=== PATIENT | female | born 1975 | race Caucasian/White ===

== ENCOUNTER 2018-12-14 12:32 | Outpatient (CLI) | payer OTHER ==
--- NOTE | 2018-12-14 15:14 | CT ---
ABDOMEN CT WITHOUT CONTRAST PELVIC CT WITHOUT CONTRAST: HISTORY: Endometriosis. Recent bladder infection. Lower pelvic pain with intercourse. COMPARISON: 12/08/2013. FINDINGS: CT ABDOMEN: Lung bases are clear. Heart size is within normal limits. No pericardial fluid. Descending thoracic aorta and abdominal a charles have a normal caliber. No periaortic fat stranding. Gallbladder is surgically absent. Limited evaluation of the solid organs by the lack of IV contrast. Grossly, no solid organ abnormali ty. No gastrohepatic, retrocrural, or periportal lymphadenopathy. There are a few scattered nonspecific lymph nodes in the central abdominal mesentery. No mesenteric mass, free air, or free fluid. Symmetric attenuation of psoas muscles. Bilaterally, no obstructive uropathy. Small punctate nonspecific calcifications in the left intrarenal collecting system. Limited evaluation of the alimentary canal by lack of oral contrast. Normal-caliber small bowel loop s. Ileocecal junction is normal. Normal-caliber appendix. Scattered fecal material in a nondistend ed, nondilated colon. Occasional diverticulum. No diverticulitis. CT PELVIS: No lymphadenopathy, free air, or free fluid. Hypodensity in the right hemipelvis likely representing an ovarian cyst measuring 1.9 x 1.8 cm. Uterus is surgically absent. Unremarkable urinary bladder. Laminectomy defect is identified. IMPRESSION: No acute abnormality of the abdomen or pelvis. POS: MACK
== END 2018-12-14 12:33 | disposition home or self-care (01) ==
LOC: CT 12:32
PROVIDERS: ATTEND Obstetrics & Gynecology
DX: R10.2 Pelvic and perineal pain (principal)
CPT/HCPCS: 74176

== ENCOUNTER 2019-05-22 13:49 | Emergency (ER) | payer OTHER ==
[2019-05-22] MEDS ORDERED: Acetaminophen 500 MG TAB ONE (15:33)
[2019-05-22] MEDS ORDERED: Metoclopramide HCl 10 MG/2 ML VIAL ONE (15:34)
[2019-05-22] MEDS ORDERED: diphenhydrAMINE 50 MG/ML VIAL ONE (15:34)
[2019-05-22] MEDS ORDERED: Ketorolac Tromethamine 30 MG/ML VIAL ONE (15:34)
--- NOTE | 2019-05-22 15:44 | CT ---
CT head noncontrast HISTORY: Headache. COMPARISON: 07/14/2014. FINDINGS: There is no evidence of acute intracranial hemorrhage or infarct. The ventricles appear nor mal in size, shape and position. There is no mass effect or shift of midline structures. IMPRESSION: No acute intracranial abnormalities are demonstrated.
[2019-05-22 16:32] LABS: #Eosinphils 0.2 thou/uL (0.0-0.7); #Lymphocytes 2.1 thou/uL (1.20-3.40); #Monocytes 0.5 thou/uL (0.11-0.59); #Neutrophils 4.4 thou/uL (1.40-6.50); %Basophils 0.6 % (0.0-1.0); %Eosinophils 3.1 % (0.0-10.0); %Lymphocytes 28.5 % (21.0-51.0); %Monocytes 7.2 % (0.0-10.0); %Neutrophils 60.5 % (42.0-75.0); Hemoglobin 13.4 g/dL (12.0-16.0); Mean Corpuscular HGB CONC 33.6 g/dL (32.0-36.0); Mean Corpuscular Volume 86.2 fL (78.0-98.0); Mean Platelet Volume 6.8 fL (7.4-10.4); Platelet Count 258 thou/uL (130-400); RBC Distribution Width 11.5 % (11.5-14.5); Red Blood Cell (RBC) Count 4.64 mill/uL (4.20-5.40); White Blood Cell (WBC) Count 7.2 thou/uL (4.8-10.8)
[2019-05-22 16:35] LABS: BHCG - Serum Negative (NEGATIVE); Pregs Control Background? CLEAR/WHITE (CLR/WHITE); Pregs Control Bar Appear? YES (CONTROL BAR)
[2019-05-22 16:41] LABS: ALT (SGPT) 19 U/L (8-55); AST (SGOT) 23 U/L (5-34); Albumin 4.5 g/dL (3.5-5.0); Alkaline Phosphatase 103 U/L (40-150); Anion Gap 14 mmol/L (10-20); BUN (Urea Nitrogen) 16 mg/dL (7.0-18.7); Bilirubin, Total 0.5 mg/dL (0.2-1.2); Calc. Creatinine Clearance 0 mL/min (70-130); Calcium 10.2 mg/dL (7.8-10.44); Carbon Dioxide 23 mmol/L (22-29); Chloride 105 mmol/L (98-107); Estimated GFR-MDRD 73; Globulin 2.9 g/dL (2.4-3.5); Glucose 83 mg/dL (70-105); Potassium 3.8 mmol/L (3.5-5.1); Protein, Total 7.4 g/dL (6.0-8.3); Sodium 138 mmol/L (136-145)
--- NOTE | 2019-05-22 16:46 | CT ---
CT cervical spine noncontrast HISTORY: Neck injury. Headache and neck pain. FINDINGS: Vertebral body heights are maintained. Reversal of the normal lordotic curvature. Cervicoth oracic junction is intact. No acute fracture or dislocation. Mild posterior disc bulge at the C6-7 level, effacing the ventral aspect of the thecal sac and spinal cord. Mild osteophytosis throughout the vertebral bodies and facets. IMPRESSION: No acute osseous abnormalities are demonstrated. Degenerative changes including posterior disc bulge at the C6-7 level.
== END 2019-05-22 17:14 | disposition home or self-care (01) ==
LOC: ERS 13:49
DX: S13.4XXA Sprain of ligaments of cervical spine, initial encounter (principal); F41.9 Anxiety disorder, unspecified; J45.909 Unspecified asthma, uncomplicated; Z79.899 Other long term (current) drug therapy; X58.XXXA Exposure to other specified factors, initial encounter
CPT/HCPCS: 36415; 70450; 72125; 80053; 84703; 85025; J1200; J1885; J2765

== ENCOUNTER 2019-11-13 17:58 | Emergency (ER) | payer OTHER, SELFPAY ==
[2019-11-13 19:55] LABS: #Eosinphils 0.1 thou/uL (0.0-0.7); #Lymphocytes 1.8 thou/uL (1.20-3.40); #Monocytes 0.3 thou/uL (0.11-0.59); #Neutrophils 4.5 thou/uL (1.40-6.50); %Basophils 0.7 % (0.0-1.0); %Eosinophils 1.7 % (0.0-10.0); %Lymphocytes 25.9 % (21.0-51.0); %Monocytes 4.9 % (0.0-10.0); %Neutrophils 66.7 % (42.0-75.0); Hemoglobin 14.5 g/dL (12.0-16.0); Mean Corpuscular HGB CONC 34.2 g/dL (32.0-36.0); Mean Corpuscular Volume 84.8 fL (78.0-98.0); Platelet Count 275 thou/uL (130-400); Red Blood Cell (RBC) Count 4.99 mill/uL (4.20-5.40); White Blood Cell (WBC) Count 6.8 thou/uL (4.8-10.8)
--- NOTE | 2019-11-13 20:11 | CT ---
CT head noncontrast HISTORY: Headache. COMPARISON: 05/22/2019. FINDINGS: There is no evidence of acute intracranial hemorrhage or infarct. The ventricles appear nor mal in size, shape and position. There is no mass effect or shift of midline structures. Visualized paranasal sinuses remain well-aerated. IMPRESSION: Normal exam.
[2019-11-13 20:18] LABS: ALT (SGPT) 21 U/L (8-55); AST (SGOT) 26 U/L (5-34); Albumin 4.7 g/dL (3.5-5.0); Alkaline Phosphatase 97 U/L (40-110); Anion Gap 14 mmol/L (10-20); BUN (Urea Nitrogen) 11 mg/dL (7.0-18.7); Bilirubin, Total 0.3 mg/dL (0.2-1.2); Calc. Creatinine Clearance 0 mL/min (70-130); Calcium 9.8 mg/dL (7.8-10.44); Carbon Dioxide 24 mmol/L (22-29); Chloride 106 mmol/L (98-107); Estimated GFR-MDRD 69; Globulin 3.1 g/dL (2.4-3.5); Glucose 86 mg/dL (70-105); Potassium 3.7 mmol/L (3.5-5.1); Protein, Total 7.8 g/dL (6.0-8.3); Sodium 140 mmol/L (136-145)
[2019-11-13 22:13] LABS: Bilirubin Negative (Negative); Blood, Urine Negative (Negative); Clarity Clear (Clear); Glucose, Urine (Dipstick) Normal (Negative); Leukocyte Negative Leu/uL (Negative); Nitrite Negative (Negative); Protein, Urine (Dipstick) Negative (Neg-Trace); Urobilinogen Normal mg/dL (Less than 2)
== END 2019-11-13 23:07 | disposition home or self-care (01) ==
LOC: ERS 17:58
DX: R51 Headache (principal); J45.909 Unspecified asthma, uncomplicated; F41.9 Anxiety disorder, unspecified; Z87.891 Personal history of nicotine dependence; Z79.899 Other long term (current) drug therapy
CPT/HCPCS: 36415; 70450; 80053; 81003; 85025; 87804

== ENCOUNTER 2019-12-17 12:40 | Outpatient (CLI) | payer OTHER ==
--- NOTE | 2019-12-17 13:28 | ULT ---
BILATERAL CAROTID DUPLEX ULTRASOUND: HISTORY: Dizziness TECHNIQUE: Grayscale, color-flow and spectral Doppler ultrasound imaging of the extracranial carotid artery syst ems was performed bilaterally. FINDINGS: Grayscale, color-flow, Doppler evaluation, spectral analysis of the bilateral carotid arteries is per formed with 2-D imaging. There is suggestion of a heterogeneous nodule within the left lobe of thyroid gland not well evaluated on this exam. A hypodense nodule is seen in left lobe of thyroid gla nd on prior CT cervical spine on 05/22/2019; this hypodense nodule is also present in the left lobe of thyroid gland on study of 09/14/2013. There is no hemodynamically significant stenosis in the bilateral internal carotid arteries according to the peak systolic velocities and the ICA/CCA ratios. The peak systolic velocity in the right ICA measures 82.6 cm/s. The peak systolic velocity in the left ICA measures 88.3 cm/s. The right IC A/CCA ratio is 0.85, and the left ICA/CCA ratio is 1.0. Vertebral arteries: Antegrade flow is demonstrated in the vertebral arteries bilaterally. IMPRESSION: 1. No hemodynamically significant stenosis in the bilateral internal carotid arteries. 2. Incomplete visualization and evaluation of a heterogeneous nodule left lobe of thyroid gland. Mitchell nadir, a hypodense nodule was seen in the left lobe of thyroid gland on prior CT scans of the cervical spine on 09/14/2013 and 05/22/2019.
== END 2019-12-17 12:41 | disposition home or self-care (01) ==
LOC: BICULT 12:40
PROVIDERS: ATTEND Audiologist-Hearing Aid Fitter
DX: R42 Dizziness and giddiness (principal); E04.1 Nontoxic single thyroid nodule
CPT/HCPCS: 93880

== ENCOUNTER 2022-04-05 10:45 | Emergency (ER) | payer OTHER, SELFPAY | END 2022-04-05 12:16 | disposition home or self-care (01) | LOC: ERS 10:45 | DX: M25.562 Pain in left knee (principal); J45.909 Unspecified asthma, uncomplicated; Z87.891 Personal history of nicotine dependence; Z79.899 Other long term (current) drug therapy | CPT/HCPCS: 99283 ==

== ENCOUNTER 2022-05-24 10:38 | Outpatient (CLI) | payer BC | END 2022-05-24 10:39 | disposition home or self-care (01) | LOC: TBSIIMAG 10:38 | PROVIDERS: ATTEND Surgery | DX: M47.812 Spondylosis without myelopathy or radiculopathy, cervical region (principal); M48.02 Spinal stenosis, cervical region | CPT/HCPCS: 72141 ==